=== PATIENT | female | born 1980 | race African-American/Black ===

== ENCOUNTER → 2020-01-06 13:17 | Outpatient (BNVA) | payer OTHER, SELFPAY | PROVIDERS: PCP Internal Medicine; Visit Provider Advanced Practice Midwife | DX: Z76.89 Persons encountering health services in other specified circumstances (principal) ==

== ENCOUNTER 2020-01-11 12:43 | Outpatient (REF) | payer OTHER, SELFPAY ==
[2020-01-11 13:58] LABS: MANUAL DIFF FLAG NO
[2020-01-11 14:00] LABS: Basophils Percent Auto 0.6 % (0-2); Eosinophils Percent Auto 0.4 % (0-4); Hematocrit 40.3 % (37-47); Hemoglobin 13.5 g/dl (12.0-16.0); Imm Gran Abs Auto 0.01 X10*3/uL (0.00-0.03); Imm Gran Pct Auto 0.2 % (0.0-0.4); Lymphocytes Absolute Auto 1.2 X10*3/uL (1.2-4.9); Lymphocytes Percent Auto 25.6 % (20-40); Mean Corpuscular HGB Conc 33.5 g/dl (31.0-35.0); Mean Corpuscular Hemoglobin 31.2 pg (27.0-33.0); Mean Corpuscular Volume 93.1 fL (80-98); Mean Platelet Volume 10.3 fL (9.4-12.3); Monocytes Absolute Auto 0.3 X10*3/uL (0.1-1.2); Monocytes Percent Auto 6.7 % (2-11); Neutrophils Absolute Auto 3.2 X10*3/uL (2.0-8.3); Neutrophils Percent Auto 66.5 % (45-73); Platelet Count 254 X10*3/uL (160-400); Red Blood Count 4.33 X10*6/uL (4.20-5.50); Red Cell Distribution Width 11.3 % (11.0-16.0); White Blood Count 4.8 X10*3/uL (4.8-10.8)
[2020-01-11 14:43] LABS: Alanine Aminotransferase 11 U/L (0-31); Albumin Level 4.3 g/dL (3.5-5.0); Alkaline Phosphatase 44 U/L (39-117); Anion Gap 13 (12-20); Aspartate Amino Transferase 15 U/L (5-31); Bilirubin Total 0.5 mg/dL (0.0-1.0); Blood Urea Nitrogen 15 mg/dL (9-16); Carbon Dioxide 25 mmol/L (22-29); Chloride 102 mmol/L (96-108); Estimated Glomerular Filt Rate > 60; Glucose Fasting 85 mg/dL (60-99); Potassium 4.1 mmol/l (3.3-5.1); Sodium 136 mmol/L (135-145); Total Protein 7.9 g/dL (6.5-8.0)
[2020-01-11 15:12] LABS: TSH reflex Free T4 0.45 mIU/mL (0.32-4.0)
[2020-01-11 15:13] LABS: Vitamin B12 461 pg/mL (200-900)
[2020-01-11 17:15] LABS: Cholesterol 145 mg/dL; HDL Cholesterol 48 mg/dL; LDL Cholesterol Calculated 90 mg/dl; Triglycerides 36 mg/dL
[2020-01-16 14:16] LABS: Vitamin D 25-OH, D2 <4 ng/mL; Vitamin D 25-OH, D3 20 ng/mL; Vitamin D 25-OH, Total 20 ng/mL (30-100)
== END 2020-01-11 12:44 | disposition home or self-care (01) ==
LOC: HO.LAB 12:43
PROVIDERS: PCP Internal Medicine; Visit Provider Internal Medicine
DX: E55.9 Vitamin D deficiency, unspecified (principal); Z83.3 Family history of diabetes mellitus
CPT/HCPCS: 36415; 80053; 80061; 82306; 82607; 84443; 85025

== ENCOUNTER 2020-06-15 11:16 | Outpatient (REF) | payer OTHER, SELFPAY ==
--- NOTE | ~2020-06-15 | XR_ITS ---
EXAMINATION: XR ELBOW, LEFT CLINICAL INFORMATION: Pain COMPARISON: None TECHNIQUE: AP, lateral, and oblique views of the left elbow. FINDINGS: The bones and soft tissues are normal. No fracture or joint effusion. Alignment is anatomic. Joint spaces are maintained. XR/XR elbow LT 2V IMPRESSION: Normal left elbow.
== END 2020-06-15 11:17 | disposition home or self-care (01) ==
LOC: HO.XRAY 11:16
PROVIDERS: PCP Internal Medicine; Visit Provider Internal Medicine
DX: M25.522 Pain in left elbow (principal)
CPT/HCPCS: 73070

== ENCOUNTER 2021-05-02 10:11 | Outpatient (REF) | payer OTHER, SELFPAY ==
[2021-05-02 11:30] LABS: MANUAL DIFF FLAG NO
[2021-05-02 11:52] LABS: Basophils Percent Auto 0.7 % (0-2); Eosinophils Percent Auto 0.2 % (0-4); Hematocrit 41.8 % (37.0-47.0); Hemoglobin 13.8 g/dl (12.0-16.0); Imm Gran Abs Auto 0.02 X10*3/uL (0.00-0.03); Imm Gran Pct Auto 0.5 % (0.0-0.4); Lymphocytes Absolute Auto 1.2 X10*3/uL (1.2-4.9); Lymphocytes Percent Auto 26.9 % (20-40); Mean Corpuscular Hemoglobin 30.1 pg (27.0-33.0); Mean Corpuscular Volume 91.1 fL (80.0-98.0); Mean Platelet Volume 9.6 fL (9.4-12.3); Monocytes Absolute Auto 0.4 X10*3/uL (0.1-1.2); Monocytes Percent Auto 8.8 % (2-11); Neutrophils Absolute Auto 2.7 x10*3/uL (2.0-8.3); Neutrophils Percent Auto 62.9 % (45-73); Platelet Count 232 X10*3/uL (160-400); Red Blood Count 4.59 X10*6/uL (4.20-5.50); Red Cell Distribution Width 11.9 % (11.0-16.0); White Blood Count 4.3 X10*3/uL (4.8-10.8)
[2021-05-02 12:24] LABS: Alanine Aminotransferase 17 U/L (0-31); Albumin Level 4.3 g/dL (3.5-5.0); Alkaline Phosphatase 53 U/L (39-117); Anion Gap 10 (12-20); Aspartate Amino Transferase 16 U/L (5-31); Bilirubin Total 0.5 mg/dL (0.0-1.0); Blood Urea Nitrogen 14 mg/dL (9-16); Calcium 9.4 mg/dL (8.4-10.2); Carbon Dioxide 26 mmol/L (22-29); Chloride 104 mmol/L (96-108); Cholesterol 148 mg/dL; Estimated Glomerular Filt Rate > 60; Glucose Fasting 91 mg/dL (60-99); HDL Cholesterol 51 mg/dL; LDL Cholesterol Calculated 90 mg/dl; Potassium 4.1 mmol/L (3.3-5.1); Sodium 136 mmol/L (135-145); Total Protein 7.9 g/dL (6.5-8.0); Triglycerides 35 mg/dL
[2021-05-02 12:42] LABS: Thyroid Stimulating Hormone 0.77 uIU/mL (0.32-4.0)
[2021-05-06 15:02] LABS: HPV mRNA E6/E7 rflx Not Detected (Not Detected)
[2021-05-07 15:46] LABS: Vitamin D 25-OH, D2 <4 ng/mL; Vitamin D 25-OH, D3 17 ng/mL; Vitamin D 25-OH, Total 17 ng/mL (30-100)
== END 2021-05-02 10:12 | disposition home or self-care (01) ==
LOC: HO.LAB 10:11
PROVIDERS: PCP Internal Medicine; Visit Provider Advanced Practice Midwife
DX: Z01.419 Encounter for gynecological examination (general) (routine) without abnormal findings (principal); Z11.51 Encounter for screening for human papillomavirus (HPV); E78.5 Hyperlipidemia, unspecified; R63.6 Underweight; E55.9 Vitamin D deficiency, unspecified; D64.9 Anemia, unspecified; Z83.3 Family history of diabetes mellitus
CPT/HCPCS: 36415; 80053; 80061; 82306; 84443; 85025; 87624; 88142

== ENCOUNTER → 2021-05-16 15:19 | Outpatient (BNVA) | payer OTHER, SELFPAY | PROVIDERS: PCP Internal Medicine; Visit Provider Advanced Practice Midwife ==

== ENCOUNTER 2021-06-14 11:35 | Outpatient (REF) | payer OTHER, SELFPAY ==
--- NOTE | ~2021-06-14 | US_ITS ---
EXAMINATION: US PELVIS CLINICAL INFORMATION: Abnormal uterine and vaginal bleeding. COMPARISON: None TECHNIQUE: Ultrasound of the pelvis is performed using transabdominal transducers along with Doppler. Transvaginal imaging was attempted. However, the patient is unable to accommodate the transducer, hence, it was not performed. FINDINGS: UTERUS: The uterus is anteverted, anteflexed and measures 8.3 x 3.8 x 4.8 cm The double wall endometrial thickness is 1.1 mm. The uterus is smooth in contour and has normal myometrial echogenicity. No visible fibroid. ADNEXA: Right ovary is not visualized. There is normal color flow to left adnexa. There is no ovarian torsion. There is no pelvic ascites or fluid collection. Right ovary is not visualized. Left ovary measures 2.1 x 1.5 x 1.8 cm and volume 3.0 mL. There is trace fluid posterior to the uterus. US/US pelvic complete IMPRESSION: Unremarkable uterus and left ovary. There is a small amount of free fluid posterior to the uterus.
== END 2021-06-14 11:36 | disposition home or self-care (01) ==
LOC: HO.US 11:35
PROVIDERS: Visit Provider Advanced Practice Midwife
DX: N93.9 Abnormal uterine and vaginal bleeding, unspecified (principal)
CPT/HCPCS: 76856

== ENCOUNTER 2021-09-07 13:11 | Outpatient (REF) | payer OTHER, SELFPAY ==
[2021-09-08 09:17] LABS: BV Int Neg Control Negative (Negative); BV Int Pos Control Positive (Positive)
[2021-09-08 09:34] LABS: CT PCR NOT DETECTED (Not Detect.); NG PCR NOT DETECTED (Not Detect.)
== END 2021-09-07 13:12 | disposition home or self-care (01) ==
LOC: HO.LAB 13:11
PROVIDERS: Visit Provider Advanced Practice Midwife
DX: Z32.02 Encounter for pregnancy test, result negative (principal); Z71.2 Person consulting for explanation of examination or test findings; N93.9 Abnormal uterine and vaginal bleeding, unspecified
CPT/HCPCS: 81025; 87480; 87491; 87510; 87591; 87660; 99212

== ENCOUNTER 2022-01-17 09:06 | Outpatient (REF) | payer OTHER, SELFPAY ==
--- NOTE | 2022-01-17 09:17 | ECG_ITS ---
Test Reason : Chest Pain unspecified Blood Pressure : / mmHG Vent. Rate : 082 BPM Atrial Rate : 082 BPM P-R Int : 162 ms QRS Dur : 082 ms QT Int : 362 ms P-R-T Axes : 079 082 049 degrees QTc Int : 422 ms Normal sinus rhythm Nonspecific ST abnormality Abnormal ECG When compared with ECG of 30-JAN-2012 14:42, No significant change was found Referred By: Sherry Benítez Electronically Signed By:OPHELIA ROBERSON MD
[2022-01-17 10:33] LABS: Alanine Aminotransferase 12 U/L (0-31); Albumin Level 4.3 g/dL (3.5-5.0); Alkaline Phosphatase 52 U/L (39-117); Anion Gap 14 (12-20); Aspartate Amino Transferase 13 U/L (5-31); Bilirubin Total 0.5 mg/dL (0.0-1.0); Blood Urea Nitrogen 16 mg/dL (9-16); Calcium 9.2 mg/dL (8.4-10.2); Carbon Dioxide 24 mmol/L (22-29); Chloride 103 mmol/L (96-108); Cholesterol 145 mg/dL; Estimated Glomerular Filt Rate > 60; Glucose Fasting 89 mg/dL (60-99); HDL Cholesterol 45 mg/dL; LDL Cholesterol Calculated 93 mg/dl; Potassium 3.8 mmol/L (3.3-5.1); Sodium 137 mmol/L (135-145); Total Protein 7.8 g/dL (6.5-8.0); Triglycerides 38 mg/dL
[2022-01-17 11:04] LABS: Vitamin D 25-OH Total 16.9 ng/mL (>30)
== END 2022-01-17 09:07 | disposition home or self-care (01) ==
LOC: HO.LAB 09:06
PROVIDERS: PCP Internal Medicine; Visit Provider Internal Medicine
DX: Z00.00 Encounter for general adult medical examination without abnormal findings (principal); R07.9 Chest pain, unspecified; E55.9 Vitamin D deficiency, unspecified
CPT/HCPCS: 36415; 80053; 80061; 82306; 93005

== ENCOUNTER → 2022-05-04 10:06 | Outpatient (BNVA) | payer OTHER, SELFPAY | PROVIDERS: PCP Internal Medicine; Visit Provider Advanced Practice Midwife | DX: Z13.89 Encounter for screening for other disorder (principal) ==

== ENCOUNTER → 2022-05-21 14:37 | Outpatient (BNVA) | payer OTHER, SELFPAY | PROVIDERS: PCP Internal Medicine; Referring Provider Internal Medicine; Visit Provider Internal Medicine | DX: R01.1 Cardiac murmur, unspecified (principal) | CPT/HCPCS: 99202 ==

== ENCOUNTER → 2022-05-28 12:59 | Outpatient (REF) | payer OTHER, SELFPAY ==
--- NOTE | 2022-05-28 13:02 | CA_ITS ---
Transthoracic Echocardiogram Patient (Last, First, Middle): Miracle Clifton, Gender: Female Date of : 1980 Age: 42 Procedure Date: 05/28/2022 Procedure Type: Transthoracic Echocardiogram Location: OP Height: 162.56 cm Weight: 48.08 kg BSA: 1.49 m2 Heart Rate: bpm BP: 110 / 72 mmHg Capsule Maker: TO Referring MD: Marvel Eden MD Symptoms: R07.9 - Chest pain, unspecified Study Quality: Fair ECG Rhythm: Sinus Conclusions: - The left ventricular systolic function is normal. The calculated ejection fraction is 57% by biplane method. - No obvious valvular pathology seen on this study. Findings Left Ventricle Normal left ventricular cavity size. There is normal left ventricular wall thickness. The left ventricular systolic function is normal. The calculated ejection fraction is 57% by biplane method. There is no evidence of regional wall motion abnormalities. Diastolic function is normal for age. Right Ventricle Normal right ventricular cavity size and systolic function. Atria Both atria are normal in size. Aortic Valve There is a normal trileaflet aortic valve. There is no aortic valve stenosis. There is no aortic valve regurgitation. Mitral Valve The mitral valve appears normal. There is no mitral valve regurgitation. There is no mitral valve stenosis. Pulmonic Valve The pulmonic valve is likely normal. Tricuspid Valve Normal tricuspid valve structure. There is trace tricuspid valve regurgitation. There is no evidence of pulmonary hypertension. Great Vessels The asc aorta is normal in size. Venous The inferior vena cava is normal in size and collapses greater than 50% with inspiration. Pericardium/Pleural There is no evidence of pericardial effusion. Prior Study Comparison No prior study available for comparison. Recommendations, Care & Conclusions No obvious valvular pathology seen on this study. Measurements 2D Linear Measurements IVSd: 0.73 0.6-0.9/0.6-1.0 cm LVIDd: 3.66 3.9-5.3/4.2-5.9 cm LVIDd Index: 2.46 2.4-3.2/2.2-3.1 cm/m2 LVIDs: 2.22 2.0-3.6 cm LVPWd: 0.61 0.7-1.1 cm LA Diam: 2.30 2.7-3.8/3.0-4.0 cm LAIDs Index: 1.54 1.5-2.3 cm/m2 LV Mass: 78.39 67-162/88-224 g LV Mass Index: 52.61 43-95/49-115 g/m2 LVOT Diam: 1.80 3.0+(-)1.3 cm 2D Systolic Function EF 4C: 56.30 >55% EF 2C: 61.50 >55% EF BiP: 56.80 >55% Mitral Valve MV Pk E: 0.70 MV PK A: 0.70 MV Decel Time: 230.00 E/A: 1.00 E'Lateral: 18.30 E'Medial: 16.20 E/E' Med: 4.30 E/E' Lat: 3.80 PHT: 67.00 MVA PHT: 3.28 Decel Meagher: 3.03 Aortic Valve AoV Pk Gonsalo: 1.25 AoV Mn Gonsaol: 0.83 AoV VTI: 0.22 AoV Pk Grad: 6.00 Aov Mn Grad: 3.00 RADHA Cont.VTI: 2.32 LVOT LVOT Pk Gonsalo: 1.02 LVOT Mn Gonsalo: 0.68 LVOT VTI: 0.20 LVOT Pk Grad: 4.00 LVOT Mn Grad: 2.00 LVOT Diam: 1.80 LVOT Area: 2.54 Diastolic Function MV Pk E: 0.70 MV Pk A: 0.70 E/A: 1.00 E'Medial: 16.20 E/E' Med: 4.30 E' Laterial: 18.30 E/E' Lat: 3.80 Right Ventricle TAPSE (mm): 22.60 TVS' Gonsalo: 12.40 Tricuspid Valve TR Pk Gonsalo: 1.91 TR Pk Grad: 15.00 RA Press: 3.00 RVSP: 18.00 Great Vessels Aorta Sinus of Valsalva: 3.03 2.0-3.[address] Ridge: 2.37 1.7-3.4 cm Ao Asc: 2.40 2.1-3.4 cm Updated in Other Vendor System with Status of Final Marvel Eden MD electronically signed on 05/28/2022 5:19:13 PM with status of Final
== END ==
LOC: HO.CARD 12:59
PROVIDERS: PCP Internal Medicine; Visit Provider Internal Medicine
DX: R07.9 Chest pain, unspecified (principal)
CPT/HCPCS: 93306

== ENCOUNTER 2022-06-01 14:06 | Outpatient (REF) | payer OTHER, SELFPAY ==
--- NOTE | ~2022-06-01 | MM_ITS ---
EXAMINATION: MM SCREENING DIGITAL BREAST TOMOSYNTHESIS, BILATERAL CLINICAL INFORMATION: Screening. Asymptomatic. Age 42. No prior mammography. Family history breast cancer maternal half-sister. The lifetime risk of breast cancer based on the Tyrer-Cuzick Model is 17%. COMPARISON: None (current study represents initial baseline exam). TECHNIQUE: Digital breast tomosynthesis is performed in both the craniocaudal and mediolateral oblique views along with computer-aided detection (CAD). Synthesized 2D images are generated from the tomosynthesis. FINDINGS: The breasts are extremely dense, which lowers the sensitivity of mammography (ACR BI-RADS breast composition Category d). There is a 0.7 cm nodular asymmetry upper right breast on MLO view 8 cm from nipple. As this represents initial baseline, patient will be recalled for additional imaging. The remainder of the breasts show no mass or architectural abnormality. The axilla and skin contours are unremarkable. Right breast has scattered punctate round calcifications without focal grouping. Left breast MLO view has some loosely grouped calcifications mid upper breast and mid central lower breast without grouping on CC view. As this represents initial baseline, additional left magnification views will be obtained at time of recall. MM/MM tomosynthesis screening BI IMPRESSION: Right: -Nodular asymmetry 0.7 cm upper quadrant on MLO view. Left: -Loosely grouped calcifications on MLO view upper abdomen central lower breast. ASSESSMENT: BI-RADS 0: Incomplete - Need Additional Imaging Evaluation RECOMMENDATION: 1. Additional views of the right breast (spot MLO). Targeted ultrasound if warranted after review of the additional views. 2. Additional views left breast (magnification ML upper and central lower, magnification CC inner and outer). 3. Radiology department staff will contact the patient for additional imaging. This patient's information was entered into a reminder system with a target due date for their next mammogram.
== END 2022-06-01 14:07 | disposition home or self-care (01) ==
LOC: HO.MAMMO 14:06
PROVIDERS: Visit Provider Advanced Practice Midwife
DX: Z12.31 Encounter for screening mammogram for malignant neoplasm of breast (principal)
CPT/HCPCS: 77063; 77067

== ENCOUNTER 2022-06-28 13:31 | Outpatient (REF) | payer OTHER, SELFPAY ==
--- NOTE | ~2022-06-28 | MM_ITS ---
EXAMINATION: MM DIAGNOSTIC DIGITAL BREAST TOMOSYNTHESIS, BILATERAL CLINICAL INFORMATION: Recall from baseline screening for nodular asymmetry upper right breast and loosely grouped calcifications left breast. TC score 17%. COMPARISON: Mammography: 06/02/2019 (baseline, BI-RADS 0). TECHNIQUE: Left breast: Digital magnification mammography in CC x2 and ML x2 views. Right breast: Digital breast tomosynthesis is performed in spot MLO view. 2-D images are generated from the tomosynthesis. FINDINGS: The breasts are extremely dense, which lowers the sensitivity of mammography (ACR BI-RADS breast composition Category d). Additional magnification views left breast show scattered loosely calcifications in the central inner quadrant. A few of the calcifications show layering on ML view. The recent baseline mammography also showed scattered random calcifications contralateral right breast. The left breast calcifications are probably benign and will be reassessed again in 6 months to include magnification views. Additional spot view upper right breast demonstrates no mass, focal parenchymal asymmetry, or architectural abnormality. Right breast may be reassessed again at time of next annual exam, due in 12 months. Results are discussed with the patient at time of visit. MM/MM tomosynthesis added view BI IMPRESSION: Left: -Regional loosely grouped calcifications central inner breast. Right: -No mammographic evidence of malignancy. ASSESSMENT: BI-RADS 3: Probably Benign RECOMMENDATION: Diagnostic left mammography in 6 months. This patient's information was entered into a reminder system with a target due date for their next mammogram.
== END 2022-06-28 13:32 | disposition home or self-care (01) ==
LOC: HO.MAMMO 13:31
PROVIDERS: PCP Internal Medicine; Visit Provider Advanced Practice Midwife
DX: R92.1 Mammographic calcification found on diagnostic imaging of breast (principal); N64.89 Other specified disorders of breast
CPT/HCPCS: 77062; 77066

== ENCOUNTER 2022-12-28 14:19 | Outpatient (REF) | payer OTHER, SELFPAY ==
--- NOTE | ~2022-12-28 | MM_ITS ---
EXAMINATION: MM DIAGNOSTIC DIGITAL BREAST TOMOSYNTHESIS, LEFT CLINICAL INFORMATION: 6 month follow-up left breast calcifications COMPARISON: Mammography: 06/28/2022, 06/01/2022. TECHNIQUE: Digital breast tomosynthesis is performed in the following views,; full-field left CC and MLO 3-D views; and 3-D spot magnification left CC and mediolateral views were performed. FINDINGS: The breasts are extremely dense, which lowers the sensitivity of mammography (ACR BI-RADS breast composition Category d). There are numerous scattered calcifications throughout the left breast, most numerous in the central anterior and posterior left breast as well as the slightly upper and slightly medial left breast. On the mediolateral projection, the majority of these layer, consistent with milk of calcium. This suggests that these calcifications although widespread are benign. Recommend 1 additional 6 month follow-up to include standard left magnification views, of which the left mediolateral view should be left in compression for 2-3 minutes to allow maximum layering. At that time, the patient will be due for bilateral screening exam. Otherwise, no suspicious masses, or developing areas of distortion identified in the left breast. A prominent round focus of parenchyma in the upper left breast is unchanged from 06/11/2022. MM/MM tomosynthesis diagnostic LT IMPRESSION: Probably benign calcifications left breast as detailed, most likely representing milk of calcium. Recommend six-month interval follow-up left diagnostic mammogram to include standard magnification views. Please see above. Otherwise, no suspicious findings in the left breast. ASSESSMENT: BI-RADS BI-RADS 3 - Probably benign finding(s) - 6 month follow-up suggested RECOMMENDATION: 6 Month F/U Results were provided to the patient at time of visit by the technologist. This patient's information was entered into a reminder system with a target due date for their next mammogram.
== END 2022-12-28 14:20 | disposition home or self-care (01) ==
LOC: HO.MAMMO 14:19
PROVIDERS: Visit Provider Advanced Practice Midwife
DX: R92.1 Mammographic calcification found on diagnostic imaging of breast (principal)
CPT/HCPCS: 77061; 77065

== ENCOUNTER → 2022-12-28 14:30 | Outpatient (BNV) | payer OTHER, SELFPAY | PROVIDERS: Visit Provider Radiology Diagnostic Radiology | DX: R92.1 Mammographic calcification found on diagnostic imaging of breast (principal) | CPT/HCPCS: 77061; 77065 ==

== ENCOUNTER 2023-01-28 08:25 | Outpatient (AMB) | payer OTHER, SELFPAY ==
[2023-01-28 08:28] VITALS: BP 120/72; PULSE 83; O2SAT 98; BMI 18.2
--- NOTE | 2023-01-28 08:28 | MHC.PC.OV ---
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: No Accompanied by: Self / Same As Patient Allergies penicillin V Allergy (Unknown, Verified 01/28/23 08:34) not sure Medication List - Last Reconciled 01/28/23 by Sherry Benítez MD cholecalciferol (vitamin D3) 50 mcg PO DAILY 90 days Tobacco use date assessed: 01/28/23 Dental Screening Dental Screen Date: 01/28/23 Did you have a dental visit in the last 12 months?: Yes Did you have a dental problem in the last 6 months where you did not have access to dental care?: No Was dental information given to patient?: Patient has dentist HPI HPI Comments History of Present Illness Details This is a 42-year-old female that comes for her physical exam. Last mammogram was last month showing benign findings but needs to be repeated in 6 months. Last Pap smear was 2021 which was normal with HPV negative. Denies any chest pain or shortness of breath. COUNT INCLUDES [facility] Medical History Family history of diabetes mellitus Underweight Abdominal pain Surgical History No history of previous surgery Family History Father Liver cancer Maternal Grandmother Diabetes mellitus Family/Other Breast cancer Mother No problems noted. Social History Household Members: Children Household Members Other:: . 10 yr old daughter, 6 yr old son Housing: Apartment Alcohol intake: never Patient Tobacco Use Status: Never used Tobacco e-Cigarette/Vaping Use: Never Used Second Hand Smoke Exposure: No service: No Current occupational status: unemployed Gender identity: Female Cognitive needs: No Hearing needs: No Vision needs: No Female Reproductive History Menstrual Age of Menarche: 14 Questionnaire PHQ-9 Over the last 2 weeks, how often have you been bothered by any of the following problems? 1. Little interest or pleasure in doing things: not at all 2. Feeling down, depressed, or hopeless: not at all 3. Trouble falling or staying asleep, or sleeping too much: not at all 4. Feeling tired or having little energy: not at all 5. Poor appetite or overeating: not at all 6. Feeling bad about yourself - or that you are a failure or have let yourself or your family down: not at all 7. Trouble concentrating on things, such as reading the newspaper or watching television: not at all 8. Moving or speaking so slowly that other people could have noticed. Or the opposite - being so fidgety or restless that you have been moving around a lot more than usual: not at all 9. Thoughts that you would be better off or of hurting yourself in some way: not at all Total score: 0 Depression Screening Interpretation: Negative Depression Screening Done: Yes 37914 - PHQ-9 Billing: Yes Source: Developed by Drs. Bony Rajput, Dana Morataya, Arturo Duggan and colleagues, with an educational ann from [email or web address]. Thrive Questionnaire Date Thrive assessed: 01/28/23 I am a: Patient What is your living situation today?: I have a steady place to live Within the past 12 months, did the food you bought not last and you didn't have the money to get more?: Never true Within the past 12 months, did you worry whether your food would run out before you got money to buy more?: Never true Do you have trouble paying for medicines?: No Do you have trouble getting transportation to medical appointments?: No Do you have trouble paying your heating and electricity bill?: No Do you have trouble taking care of your child, family member or friend?: No Do you have trouble with day-to-day activities such as bathing, preparing meals, shopping, managing finances, etc.?: No Are you currently unemployed and looking for a job?: No Are you interested in more education?: No Please select the resources that you would like help with: None Currently or been in a relationship where the following occur: no concerns reported AUDIT C Alcohol Use Questionnaire (AUDIT-C) 1. How often do you have a drink containing alcohol?: Never Total Score: 0 Score Reviewed/Action Taken: No CUAUHTEMOC-7 AMB Questionnaire CUAUHTEMOC-7 Date CUAUHTEMOC - 7 assessed: 01/28/23 Feeling nervous, anxious, or on edge: 0 = Not at all Not being able to stop or control worryin = Not at all Worrying too much about different things: 0 = Not at all Trouble relaxin = Not at all Being so restless that it is hard to sit still: 0 = Not at all Becoming easily annoyed or irritable: 0 = Not at all Feeling afraid as if something awful might happen: 0 = Not at all Total CUAUHTEMOC-7 score (0-4 normal; 5-9 mild; 10-14 moderate; 15-21 severe): 0 Source: Developed by Drs. Bony Rajput, Dana Morataya, Arturo Duggan and colleagues, with an educational ann from [email or web address]. CUAUHTEMOC-7 Assessment Billing CUAUHTEMOC-7 Assessment Tool: CUAUHTEMOC-7 Assessment 45242 Review of Systems Const All systems reviewed & are unremarkable except as noted in HPI and below Eyes Reports no additional complaints, Denies change in vision and Denies other visual disturbances Card Denies chest pain at rest, Denies chest pain with activity, Denies edema, Denies irregular heart rhythm, Denies claudication, Denies dyspnea, Denies dyspnea on exertion, Denies orthopnea, Denies paroxysmal nocturnal dyspnea and Denies slow heart rate Resp Denies cough, Denies dyspnea and Denies dyspnea on exertion GI Denies abdominal pain, Denies change in bowel habits, Denies excessive flatus, Denies nausea and Denies vomiting Denies urinary incontinence, Denies urinary hesitancy and Denies urinary urgency Musc Denies abnormal gait, Denies atrophy, Denies deformity and Denies limited range of motion Skin/Breast Denies bleeding lesions, Denies changing lesions and Denies rash Neuro Denies abnormal gait and Denies lack of coordination Physical exam (Primary Care) Vital Signs: Last Vital Signs Pulse 83 01/28/23 08:28 BP 120/72 01/28/23 08:28 Pulse Ox 98 01/28/23 08:28 Oxygen Delivery Method Room Air 01/28/23 08:28 BMI result Body Mass Index 18.2 Tobacco/Smoking Status: Tobacco use Status Tobacco use date assessed 01/28/23 01/28/23 08:31 Patient Tobacco Use Status Never used Tobacco 01/28/23 08:31 e-Cigarette/Vaping Use Never Used 01/28/23 08:31 PHQ-9: PHQ-9 Score PHQ-9: Total score 0 01/28/23 08:32 Depression Screening Interpretation: Negative Thrive Assessment: Date of Thrive Assessment Date Thrive assessed 01/28/23 01/28/23 08:31 Currently or been in a relationship where the following occur: no concerns reported Const Orientation/consciousness: patient oriented x3 HENMT Head: Yes normal to inspection, Yes normocephalic and Yes atraumatic Ears: external ears normal Eyes General: appearance normal, both eyes and all related structures Eyelids: Yes eyelids normal Conjunctivae: conjunctivae normal Neck Neck: Yes normal visual inspection and Yes supple Resp Effort & Inspection: normal respiratory effort Auscultation: clear to auscultation bilaterally Cardio Jugular venous distension: no JVD Rate: regular rate Rhythm: regular rhythm Heart sounds: S1 normal heart sound present and S2 normal heart sound present GI Inspection: Yes normal to inspection Palpation (GI): Soft to palpation and nontender Auscultation: normal bowel sounds Skin General skin exam: no rashes or lesions noted Neuro General: patient oriented x3 and no focal motor deficits Extrem General: Yes full ROM Psych Appearance: grossly normal Office Procedures Flu Questionnaire Does the patient have a severe egg allergy?: No Immunizations flu vacc [id number] 6mos up(PF) 60 mcg(15 mcgx4)/0.5 mL IM syringe Performing Provider: Sherry Benítez MD [facility] Documented (not given) by: JANKI Jin on 01/28/23 08:32 Reason Not Given: Patient Refused Assessment and Plan Assessment & Plan (1) Physical exam: Code(s): Z00.00 - Encounter for general adult medical examination without abnormal findings Plan: Repeat in a year. Orders: Orders Vitamin D 25-OH Total Today E55.9 - Vitamin D deficiency, unspecified Comprehensive [place]. Panel Fast Today Z00.00 - Encounter for general adult medical examination without abnormal findings Influenza [id number] Immunization Today Z23 - Encounter for immunization Lipid Panel Today Z00.00 - Encounter for general adult medical examination without abnormal findings Coding Level of Care Code Est Pt Prev Care 40-64y(75872) Diagnoses Physical exam Z00.00 Additional Codes CUAUHTEMOC-7 Assessment Billing - CUAUHTEMOC-7 Assessment Tool: CUAUHTEMOC-7 Assessment 14233 ([id number]) Time Spent (min) 30
== END 2023-01-28 08:41 | disposition home or self-care (01) ==
PROVIDERS: Visit Provider Internal Medicine
DX: Z00.00 Encounter for general adult medical examination without abnormal findings (principal); Z83.3 Family history of diabetes mellitus; E55.9 Vitamin D deficiency, unspecified
CPT/HCPCS: 99396

== ENCOUNTER 2023-01-28 08:46 | Outpatient (REF) | payer OTHER, SELFPAY ==
[2023-01-28 10:04] LABS: Alanine Aminotransferase 11 U/L (0-31); Albumin Level 4.1 g/dL (3.5-5.0); Alkaline Phosphatase 49 U/L (39-117); Anion Gap 10 (12-20); Aspartate Amino Transferase 15 U/L (5-31); Bilirubin Total 0.3 mg/dL (0.0-1.0); Blood Urea Nitrogen 14 mg/dL (9-16); Calcium 8.9 mg/dL (8.4-10.2); Carbon Dioxide 26 mmol/L (22-29); Chloride 105 mmol/L (96-108); Cholesterol 143 mg/dL (<200); Estimated Glomerular Filt Rate > 60; Glucose Fasting 89 mg/dL (60-99); HDL Cholesterol 42 mg/dL (>40); LDL Cholesterol Calculated 92 mg/dL (<100); Potassium 3.5 mmol/L (3.3-5.1); Sodium 137 mmol/L (135-145); Total Protein 7.8 g/dL (6.5-8.0); Triglycerides 49 mg/dL (<150)
[2023-01-28 10:07] LABS: Vitamin D 25-OH Total 19.1 ng/mL (>30)
== END 2023-01-28 08:47 | disposition home or self-care (01) ==
LOC: HO.LAB 08:46
PROVIDERS: PCP Internal Medicine; Visit Provider Internal Medicine
DX: Z00.00 Encounter for general adult medical examination without abnormal findings (principal); E55.9 Vitamin D deficiency, unspecified
CPT/HCPCS: 36415; 80053; 80061; 82306

== ENCOUNTER → 2023-07-11 15:00 | Outpatient (BNV) | payer OTHER, SELFPAY | PROVIDERS: PCP Internal Medicine; Visit Provider Radiology Diagnostic Radiology | DX: R92.1 Mammographic calcification found on diagnostic imaging of breast (principal); D24.1 Benign neoplasm of right breast; D24.2 Benign neoplasm of left breast | CPT/HCPCS: 77062; 77066 ==

== ENCOUNTER 2023-07-11 15:06 | Outpatient (REF) | payer OTHER, SELFPAY ==
--- NOTE | ~2023-07-11 | MM_ITS ---
EXAMINATION: MM DIAGNOSTIC DIGITAL BREAST TOMOSYNTHESIS, BILATERAL CLINICAL INFORMATION: 6 month follow-up for left breast calcifications. Second follow-up to establish one-year stability. Patient also due for bilateral screening. COMPARISON: Mammography: 12/28/2022, 06/28/2022, 06/01/2022 (BI-RADS 0). TECHNIQUE: Digital breast tomosynthesis is performed in both the craniocaudal and mediolateral oblique views along with computer-aided detection (CAD). Synthesized 2D images are generated from the tomosynthesis. In addition to standard views, 2-D spot magnification views of the left breast were performed in the CC and ML projections x2. FINDINGS: The breasts are extremely dense, which lowers the sensitivity of mammography (ACR BI-RADS breast composition Category d). Regional calcifications are noted in both breasts predominantly mid and upper quadrants, punctate, with clear layering of left breast calcifications on the ML spot magnification view. These findings are consistent with milk of calcium and are benign. No further follow-up of left breast calcifications is required. The right breast calcifications have similar mirror image distribution, and same morphology and are also consistent with the benign etiology. No aggressive changes noted since 06/01/2022. There are circumscribed round and oval masses in both breasts, difficult to perceive due to the extreme density of the surrounding breast tissue. These are most consistent with numerous cysts or fibroadenomas. These findings are benign and no additional follow-up is required. There are no suspicious masses, suspicious grouped calcifications, developing regions of architectural distortion, skin, or axillary abnormalities in either breast. The extremely dense parenchymal pattern is overall stable from prior exams. MM/MM tomosynthesis diagnostic BI IMPRESSION: -There are no significant changes from the prior studies. There are no findings in either breast suspicious for malignancy. -Left breast calcifications all appear to layer on the ML magnification view and are consistent with milk of calcium. These findings are benign and no further follow-up recommended. Regional calcifications in a mirror image configuration in the right breast are also consistent with same etiology and also benign. -Several round and oval circumscribed masses in both breasts are most consistent with numerous cysts, most likely secondary to fibrocystic extremely dense breast parenchyma. -A patient with this degree of breast density may benefit from yearly screening ultrasound as a screening adjunct as well as yearly screening mammography, usually performed in a six-month staggered fashion. -Otherwise, recommend this patient resume routine annual screening mammography. ASSESSMENT: BI-RADS BI-RADS 2 - Benign Findings RECOMMENDATION: 1 year F/U Results were provided to the patient at time of visit by the technologist. This patient's information was entered into a reminder system with a target due date for their next mammogram.
== END 2023-07-11 15:07 | disposition home or self-care (01) ==
LOC: HO.MAMMO 15:06
PROVIDERS: PCP Internal Medicine; Visit Provider Advanced Practice Midwife
DX: R92.1 Mammographic calcification found on diagnostic imaging of breast (principal)
CPT/HCPCS: 77062; 77066

== ENCOUNTER 2023-10-30 14:15 | Outpatient (AMB) | payer OTHER, SELFPAY ==
--- NOTE | 2023-10-30 14:17 | MHC.OFFVIS ---
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 Doing well with no concerns. She tries to eat healthy and stays active with exercise. Regular monthly menses. Currently is not sexually active. She denies vaginal itching and irritation. STI screening offered; she declines. Denies family history of ovarian or colon cancer. FH breast cancer. Last pap smear 2021, negative. Mammogram: 2023. History of calcifications and very dense breasts. [facility] Medical History (Updated 10/30/23 @ 14:53 by Eva Burnette CNM) Mammographic extreme density, bilateral breasts Family history of diabetes mellitus Underweight Abdominal pain Surgical History No history of previous surgery Family History Father Liver cancer Maternal Grandmother Diabetes mellitus Family/Other Breast cancer Mother No problems noted. Social History Household Members: Children Household Members Other:: . 10 yr old daughter, 6 yr old son Housing: Apartment Alcohol intake: never Patient Tobacco Use Status: Never used Tobacco e-Cigarette/Vaping Use: Never Used Second Hand Smoke Exposure: No service: No Current occupational status: unemployed Gender identity: Female Cognitive needs: No Hearing needs: No Vision needs: No Female Reproductive History Menstrual Age of Menarche: 14 Date of last menstrual period: 10/07/23 Total pregnancies: 3 Full term: 2 Number of Living Children: 2 Ab spontaneous: 1 Date of last pap smear: 05/02/21 (neg pap and hpv) Date of Mammogram: 07/11/23 (Birad 1) Review of Systems Const All systems reviewed & are unremarkable except as noted in HPI and below Reports as per HPI Eyes Reports no additional complaints ENT Reports no additional complaints Card Reports no additional complaints Resp Reports no additional complaints GI Reports as per HPI and Reports no additional complaints Reports as per HPI Musc Reports no additional complaints Skin/Breast Reports as per HPI Neuro Reports no additional complaints Psych Reports no additional complaints Endo Reports no additional complaints Khoa/Lymph Reports no additional complaints Aller/Immun Reports no additional complaints Physical Exam Vital Signs: Last Vital Signs BP 110/74 10/30/23 14:18 BMI result Body Mass Index 18.7 Const General: cooperative, healthy appearing, no acute distress, well developed and alert Orientation/consciousness: patient oriented x3 HEENT Head: Yes normal to inspection Eyes General: appearance normal, both eyes and all related structures Neck Neck: Yes normal visual inspection Thyroid: Thyroid normal Chest Chest palpation & inspection: normal inspection of the chest and other (no puckering, dimpling, peau de orange, retraction, discharge, masses) Breast/axilla inspection: normal inspection of the breasts Breast/axilla palpation: normal palpation of the breasts Resp Effort & Inspection: normal respiratory effort GI Inspection: Yes normal to inspection Palpation (GI): Soft to palpation Rectal Exam - Female: deferred General: Yes bladder normal to palpation External Female Exam: normal external appearance and normal appearance of the urethra Speculum Exam - Vagina: normal appearance of the vagina, normal palpation and normal vaginal discharge Speculum Exam - Cervix: normal appearance of the cervix and normal palpation Bimanual exam- vagina & uterus: normal bimanual exam, normal palpation, uterine size normal, bladder normal to palpation, normal palpation and non-tender Bimanual Exam- Adnexa, other: no masses Skin General skin exam: no rashes or lesions noted Rashes: no rashes Neuro General: patient oriented x3 Cognition (Neuro): normal cognition Extrem General: Yes normal to inspection Psych Attitude: cooperative Thought process: Normal thought process present Assessment & Plan Assessment & Plan (1) Encounter for well woman exam with routine gynecological exam: Code(s): Z01.419 - Encounter for gynecological examination (general) (routine) without abnormal findings Category: Medical Plan: Discussed: Current recommendations for pap smears per ASCCP guidelines. Breast awareness and periodic breast exams. Breast density concerns for limitations with screening, consider further screening with MRI and referral to breast surgery for consult. Maintain a healthy lifestyle including a well balanced diet and routine exercise. Use condoms for STI and prevention. Mammogram yearly. Colonoscopy >45, or at risk sooner. Patient verbalizes understanding and agrees to the plan of care. She was given opportunity to ask questions and all questions were answered to the best of my ability. RTO in one year for annual obstetrician/gynecologist examination. This note is constructed using voice recognition software. While every effort has been made to ensure accuracy, exhibits curator errors may have been included. Orders: Referrals Breast Surgery Referral R92.343 - Mammographic extreme density, bilateral breasts Coding Level of Care Code Est Pt Prev Care 40-64y(75364) Diagnoses Encounter for well woman exam with routine gynecological exam Z01.419
[2023-10-30 14:18] VITALS: BP 110/74; BMI 18.7
== END 2023-10-30 14:55 | disposition home or self-care (01) ==
PROVIDERS: PCP Internal Medicine; Visit Provider Advanced Practice Midwife
DX: Z01.419 Encounter for gynecological examination (general) (routine) without abnormal findings (principal)
CPT/HCPCS: 99396

== ENCOUNTER → 2023-10-30 14:15 | Outpatient (BNVA) | payer OTHER, SELFPAY | PROVIDERS: PCP Internal Medicine; Visit Provider Advanced Practice Midwife | DX: Z01.419 Encounter for gynecological examination (general) (routine) without abnormal findings (principal); R92.343 Mammographic extreme density, bilateral breasts | CPT/HCPCS: 99396 ==

== ENCOUNTER 2023-12-19 15:38 | Outpatient (AMB) | payer OTHER, SELFPAY ==
--- NOTE | 2023-12-19 15:48 | MHC.OFFVIS ---
Intake Visit Reasons: Mammographic extreme density, bilateral breasts Intake Note: Patient is seen in office density of bilateral breasts. 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 Her most recent mammogram dated 07/11/2023 revealed stable calcifications with no mammographic evidence of malignancy (BI-RADS 2). Her breast density score was D. She denies any current breast symptoms including pain, redness, discharge, palpable mass or enlarged lymph nodes. Her family history is negative for breast cancer. She is reports breast-feeding 2nd child for 5 years. She denies a history of breast trauma or infections. She denies a history of breast surgeries. [facility] Medical History Mammographic extreme density, bilateral breasts Family history of diabetes mellitus Underweight Abdominal pain Surgical History No history of previous surgery Family History Father Liver cancer Maternal Grandmother Diabetes mellitus Family/Other Breast cancer Mother No problems noted. Social History Household Members: Children Household Members Other:: . 10 yr old daughter, 6 yr old son Housing: Apartment Alcohol intake: never Patient Tobacco Use Status: Never used Tobacco e-Cigarette/Vaping Use: Never Used Second Hand Smoke Exposure: No service: No Current occupational status: unemployed Gender identity: Female Cognitive needs: No Hearing needs: No Vision needs: No Female Reproductive History Menstrual Age of Menarche: 14 Date of last menstrual period: 12/19/23 Total pregnancies: 3 Number of Living Children: 2 Ab spontaneous: 1 Review of Systems Const All systems reviewed & are unremarkable except as noted in HPI and below Denies chills, Denies fever(s), Denies headache(s), Denies poor appetite and Denies weakness ENT Denies headache(s) Card Denies chest pain, Denies irregular heart rhythm, Denies palpitations and Denies dyspnea Resp Denies cough, Denies excessive phlegm production and Denies dyspnea GI Denies abdominal pain, Denies bloating, Denies change in bowel habits, Denies constipation, Denies heartburn, Denies diarrhea, Denies nausea and Denies vomiting Denies urinary frequency Musc Denies back pain, Denies muscle weakness and Denies numbness Skin/Breast Denies changing lesions and Denies unusual bruising Neuro Denies headache(s), Denies numbness, Denies paresthesias and Denies weakness Psych Denies anxiety and Denies depression Endo Denies palpitations Khoa/Lymph Denies lymphadenopathy Physical Exam Const General: cooperative and no acute distress Nutritional Appearance: well nourished Orientation/consciousness: patient oriented x3 Limitations: no limitations HEENT Head: Yes normocephalic and Yes atraumatic Ears: hearing grossly normal bilaterally Chest Other: Bilateral fibrocystic change especially in the upper outer quadrant Left breast: No skin change, no nipple retraction, no nipple discharge, no palpable mass, no enlarged lymph nodes. Right breast: No skin change, no nipple retraction, no nipple discharge, no palpable mass, no enlarged lymph nodes Resp Effort & Inspection: normal respiratory effort, no audible wheezes, no cough and no respiratory distress Cardio Jugular venous distension: no JVD GI Inspection: Yes normal to inspection Skin Other: Warm, dry, no rash Neuro General: patient oriented x3 Extrem General: Yes no clubbing, cyanosis or edema Assessment & Plan Assessment & Plan (1) Mammographic extreme density, bilateral breasts: Code(s): R92.343 - Mammographic extreme density, bilateral breasts Category: Medical Plan 43-year-old female patient found on mammogram to have benign-appearing calcifications but extremely dense breasts (category D). Examination today does revealed dense breast tissue with bilateral fibrocystic change. I recommended bilateral screening ultrasounds as an adjunct to the mammogram which could be performed yearly, alternating every 6 months with a mammogram. The patient expressed understanding and agrees with the plan. She will follow-up in 6 months for follow-up breast examination as well. I will inform her of the results of the ultrasound once available. Orders: Orders US breast LT complete Today R92.343 - Mammographic extreme density, bilateral breasts US breast RT complete Today R92.343 - Mammographic extreme density, bilateral breasts Coding Level of Care Code New Pt Level 4 (18991) Diagnoses Mammographic extreme density, bilateral breasts R92.343
== END 2023-12-19 16:14 | disposition home or self-care (01) ==
PROVIDERS: PCP Internal Medicine; Visit Provider Surgery
DX: R92.343 Mammographic extreme density, bilateral breasts (principal)
CPT/HCPCS: 99204

== ENCOUNTER → 2023-12-19 15:38 | Outpatient (BNVA) | payer OTHER, SELFPAY | PROVIDERS: PCP Internal Medicine; Visit Provider Surgery | DX: R92.343 Mammographic extreme density, bilateral breasts (principal) | CPT/HCPCS: 99202 ==

== ENCOUNTER 2024-01-08 11:48 | Outpatient (REF) | payer OTHER, SELFPAY ==
--- NOTE | ~2024-01-08 | US_ITS ---
EXAMINATION: US SCREENING ULTRASOUND BREAST, BILATERAL CLINICAL INFORMATION: Dense breasts on mammography. Screening ultrasound. COMPARISON: Mammography July 11, 2023. TECHNIQUE: Ultrasound is performed using grayscale imaging and color Doppler. Imaging is performed to include the four quadrants and retroareolar region. Both breasts are imaged. FINDINGS: Right breast: Targeted color Doppler ultrasound and 9:00 4 cm from the nipple to the shouldn't incidental simple cyst measuring 6 x 3 mm. There is a man additional incidental subcentimeter simple cyst at 9:00. Otherwise scanning in the upper outer quadrant upper inner quadrant lower outer quadrant lower inner quadrant axilla demonstrates normal fibroglandular breast tissue. There is no suspicious finding by ultrasound. There is no solid mass or focal architectural abnormality. Left breast: Targeted color Doppler ultrasound at 1:00 3 cm from the nipple nipple demonstrates is a hypoechoic oval circumscribed solid mass measuring 19 x 24 x 10 mm. Otherwise scanning in the axilla upper outer quadrant lower outer quadrant upper inner quadrant lower inner quadrant demonstrates normal fibroglandular breast tissue. Targeted color Doppler ultrasound at 9:00 4 cm from nipple demonstrates an oval hypoechoic area of probably minimally complicated cysts with intervening fibroglandular breast tissue measuring 9 x 7 x 4 mm. There is no suspicious finding by ultrasound. There is no solid mass or focal architectural abnormality. US/US breast BI complete IMPRESSION: 1. Hypoechoic oval solid mass measuring up to 24 mm in the left breast on ultrasound. Recommend 6 month follow-up ultrasound for further evaluation of stability. This mass is amenable to core needle biopsy if clinically indicated or if the patient prefers biopsy at this time. 2. Probable area of adjacent minimally complicated cysts with intervening breast tissue at 9:00 4 cm from the nipple. Recommend 6 month follow-up ultrasound for further evaluation of stability. ASSESSMENT: BI-RADS 3 - Probably benign finding(s) - 6 month follow-up suggested RECOMMENDATION: 6 Month F/U This patient's information was entered into a reminder system with a target due date for their next mammogram. Electronically signed by: Raina Morales DO 01/08/2024 02:10 PM EDT
== END 2024-01-08 11:49 | disposition home or self-care (01) ==
LOC: HO.MAMMO 11:48
PROVIDERS: Visit Provider Surgery
DX: R92.343 Mammographic extreme density, bilateral breasts (principal)
CPT/HCPCS: 76641

== ENCOUNTER → 2024-01-08 11:50 | Outpatient (BNV) | payer OTHER, SELFPAY | PROVIDERS: Visit Provider Internal Medicine | DX: N63.21 Unspecified lump in the left breast, upper outer quadrant (principal); R92.322 Mammographic fibroglandular density, left breast | CPT/HCPCS: 76641 ==

== ENCOUNTER 2024-02-03 08:39 | Outpatient (AMB) | payer OTHER, SELFPAY ==
--- NOTE | 2024-02-03 08:41 | A.OFFPC_ITS ---
Vital Signs 02/03/24 08:43 Height 5 ft 4 in Weight 109 lb BMI 18.7 BP 102/70 Blood Pressure Location Lt brachial Position Sitting Pulse 69 Pulse Source Pulse Oximeter Pulse Oximetry (%) 98 Oxygen Delivery Method Room Air Intake Visit Reasons: Annual PE Intake Note: Patient here for an annual physical exam Oral Pathologist Required: No Accompanied by: Self / Same As Patient Allergies penicillin V Allergy (Unknown, Verified 02/03/24 08:55) not sure Medication List - Last Reconciled 02/03/24 by Sherry Benítez MD No Known Home Meds Tobacco use date assessed: 02/03/24 Dental Screening Dental Screen Date: 02/03/24 Did you have a dental visit in the last 12 months?: No Did you have a dental problem in the last 6 months where you did not have access to dental care?: No Was dental information given to patient?: Patient has dentist HPI HPI Comments History of Present Illness Details The patient is a 43-year-old female presenting for a wellness and preventative care visit with a focus on vaccination status, specifically tetanus vaccination. The patient has a known allergy to penicillin and reports no current medication usage. Her familial history is significant for hepatic cirrhosis in her father, who passed after a liver transplant due to complications from a dormant Hepatitis B infection found in the donor liver. Her mother is alive and has type 2 diabetes, which is managed through diet without medications. The patient reports no personal history of depression, anxiety, or significant health conditions, and she denies a history of colon or breast cancer. She underwent a mammogram and ultrasound earlier this year, both with normal results, and a Pap smear in 2021 which showed normal findings. The patient reports not having received the flu vaccine this year and has not had a tetanus shot in over 10 years, expressing willingness to receive the tetanus vaccine during the visit. [facility] Medical History Mammographic extreme density, bilateral breasts Family history of diabetes mellitus Underweight Abdominal pain Surgical History No history of previous surgery Family History (Updated 02/03/24 @ 08:59 by Sherry Benítez MD) Father Liver cancer Cirrhosis Maternal Grandmother Diabetes mellitus Family/Other Breast cancer Mother Diabetes mellitus Social History Household Members: Children Household Members Other:: . 10 yr old daughter, 6 yr old son Housing: Apartment Alcohol intake: never Patient Tobacco Use Status: Never used Tobacco e-Cigarette/Vaping Use: Never Used Second Hand Smoke Exposure: No service: No Current occupational status: unemployed Gender identity: Female Cognitive needs: No Hearing needs: No Vision needs: No Female Reproductive History Menstrual Age of Menarche: 14 Questionnaire PHQ-9 Over the last 2 weeks, how often have you been bothered by any of the following problems? 1. Little interest or pleasure in doing things: not at all 2. Feeling down, depressed, or hopeless: not at all 3. Trouble falling or staying asleep, or sleeping too much: not at all 4. Feeling tired or having little energy: not at all 5. Poor appetite or overeating: not at all 6. Feeling bad about yourself - or that you are a failure or have let yourself or your family down: not at all 7. Trouble concentrating on things, such as reading the newspaper or watching television: not at all 8. Moving or speaking so slowly that other people could have noticed. Or the opposite - being so fidgety or restless that you have been moving around a lot more than usual: not at all 9. Thoughts that you would be better off or of hurting yourself in some way: not at all Total score: 0 Depression Screening Interpretation: Negative Depression Screening Done: Yes 47813 - PHQ-9 Billing: Yes Source: Developed by Drs. Bony Rajput, Dana Morataya, Arturo Duggan and colleagues, with an educational ann from [employer]. Thrive Questionnaire Date Thrive assessed: 01/27/24 I am a: Patient What is your living situation today?: I have a steady place to live Within the past 12 months, did the food you bought not last and you didn't have the money to get more?: Sometimes True Within the past 12 months, did you worry whether your food would run out before you got money to buy more?: Sometimes True Do you have trouble paying for medicines?: No Do you have trouble getting transportation to medical appointments?: No Do you have trouble paying your heating and electricity bill?: Yes Do you have trouble taking care of your child, family member or friend?: No Do you have trouble with day-to-day activities such as bathing, preparing meals, shopping, managing finances, etc.?: No Are you currently unemployed and looking for a job?: Yes Are you interested in more education?: Yes Please select the resources that you would like help with: None Currently or been in a relationship where the following occur: No concerns reported THRIVE Score: 3 AUDIT C Alcohol Use Questionnaire (AUDIT-C) 1. How often do you have a drink containing alcohol?: Never Total Score: 0 Score Reviewed/Action Taken: No CUAUHTEMOC-7 AMB Questionnaire CUAUHTEMOC-7 Date CUAUHTEMOC - 7 assessed: 02/03/24 Feeling nervous, anxious, or on edge: 0 = Not at all Not being able to stop or control worryin = Several days Worrying too much about different things: 0 = Not at all Trouble relaxin = Not at all Being so restless that it is hard to sit still: 0 = Not at all Becoming easily annoyed or irritable: 2 = More than half the days Feeling afraid as if something awful might happen: 1 = Several days Total CUAUHTEMOC-7 score (0-4 normal; 5-9 mild; 10-14 moderate; 15-21 severe): 4 Source: Developed by Drs. Bony Rajput, Dana Morataya, Arturo Duggan and colleagues, with an educational ann from [employer]. CUAUHTEMOC-7 Assessment Billing CUAUHTEMOC-7 Assessment Tool: CUAUHTEMOC-7 Assessment 13368 Review of Systems Const All systems reviewed & are unremarkable except as noted in HPI and below Card Denies chest pain at rest, Denies chest pain with activity, Denies edema, Denies irregular heart rhythm, Denies claudication, Denies dyspnea, Denies dyspnea on exertion, Denies orthopnea, Denies paroxysmal nocturnal dyspnea and Denies slow heart rate Resp Denies cough, Denies dyspnea and Denies dyspnea on exertion GI Denies abdominal pain, Denies change in bowel habits, Denies excessive flatus, Denies nausea and Denies vomiting Denies urinary incontinence, Denies urinary hesitancy and Denies urinary urgency Neuro Denies behavioral changes and Denies lack of coordination Psych Denies behavioral changes Physical exam (Primary Care) Vital Signs: Last Vital Signs Pulse 69 02/03/24 08:43 BP 102/70 02/03/24 08:43 Pulse Ox 98 02/03/24 08:43 Oxygen Delivery Method Room Air 02/03/24 08:43 BMI result Body Mass Index 18.7 Tobacco/Smoking Status: Tobacco use Status Tobacco use date assessed 02/03/24 02/03/24 08:44 Patient Tobacco Use Status Never used Tobacco 02/03/24 08:44 e-Cigarette/Vaping Use Never Used 02/03/24 08:44 PHQ-9: PHQ-9 Score PHQ-9: Total score 0 02/03/24 08:57 Depression Screening Interpretation: Negative Thrive Assessment: Date of Thrive Assessment Date Thrive assessed 01/27/24 02/03/24 08:44 Currently or been in a relationship where the following occur: No concerns reported HENMT Head: Yes normal to inspection, Yes normocephalic and Yes atraumatic Ears: external ears normal Eyes General: appearance normal, both eyes and all related structures Eyelids: Yes eyelids normal Conjunctivae: conjunctivae normal Neck Neck: Yes normal visual inspection and Yes supple Resp Effort & Inspection: normal respiratory effort Auscultation: clear to auscultation bilaterally Cardio Jugular venous distension: no JVD Rate: regular rate Rhythm: regular rhythm Heart sounds: S1 normal heart sound present and S2 normal heart sound present GI Inspection: Yes normal to inspection Palpation (GI): Soft to palpation and nontender Auscultation: normal bowel sounds Skin General skin exam: no rashes or lesions noted Neuro General: no focal motor deficits Extrem General: Yes full ROM Psych Appearance: grossly normal Office Procedures Flu Questionnaire Does the patient have a severe egg allergy?: No Immunizations Fluarix Triv [id number] (PF) 45 mcg (15 mcg x 3)/0.5 mL IM syringe Performing Provider: Sherry Benítez MD Performing Location: [facility] Documented (not given) by: JANKI Jin on 02/03/24 08:48 Reason Not Given: Patient Refused Boostrix Tdap 2.5 Lf unit-8 mcg-5 Lf/0.5 mL intramuscular syringe Performing Provider: Sherry Benítez MD Performing Location: [facility] Administered by: JANKI Jin on 02/03/24 09:07 Dose Route Admin Location Dispensed Lot Number Expiration Date NDC Guest Services Attendant 0.5 mL IM Left Deltoid 0.5 mL [id number] 01/31/26 21853-532-45 [employer] VIS Given Date VIS Provided VIS Publication Date 02/03/24 Single Vaccine 20 Eligibility Eligibility Date Funding Source Not [facility] Eligible 02/03/24 Private Coding Level of Care Code Est Pt Prev Care 40-64y(08673) Diagnoses Physical exam Z00.00 Additional Codes PHQ-9 - 96479 - PHQ-9 Billing: Yes ([id number]) CUAUHTEMOC-7 Assessment Billing - CUAUHTEMOC-7 Assessment Tool: CUAUHTEMOC-7 Assessment 17611 ([id number]) Time Spent (min) 30 Assessment & Plan Assessment & Plan (1) Physical exam: Code(s): Z00.00 - Encounter for general adult medical examination without abnormal findings Category: Medical Plan: Repeat in a year. Orders: Orders Vitamin D 25-OH Total Today E55.9 - Vitamin D deficiency, unspecified Influenza [id number] Immunization Today Z23 - Encounter for immunization TDaP Immunization Today Z23 - Encounter for immunization Lipid Panel Today Z00.00 - Encounter for general adult medical examination without abnormal findings Comprehensive [place]. Panel Fast Today Z00.00 - Encounter for general adult medical examination without abnormal findings Medications: New Boostrix Tdap (diphth,pertus(acell),tetanus) 0.5 mL IM ONCE 0.5 mL 0RF NS Z23 - Encounter for immunization
[2024-02-03 08:43] VITALS: BP 102/70; PULSE 69; O2SAT 98; BMI 18.7
== END 2024-02-03 09:09 | disposition home or self-care (01) ==
PROVIDERS: PCP Internal Medicine; Visit Provider Internal Medicine
DX: Z23 Encounter for immunization (principal); Z00.00 Encounter for general adult medical examination without abnormal findings

== ENCOUNTER 2024-02-03 08:39 | Outpatient (REF) | payer OTHER, SELFPAY ==
[2024-02-03 11:12] LABS: Alanine Aminotransferase 13 U/L (0-31); Alkaline Phosphatase 53 U/L (39-117); Anion Gap 10 (12-20); Aspartate Amino Transferase 18 U/L (5-31); Bilirubin Total 0.4 mg/dL (0.0-1.0); Blood Urea Nitrogen 13 mg/dL (9-16); Calcium 8.6 mg/dL (8.4-10.2); Carbon Dioxide 26 mmol/L (22-29); Chloride 106 mmol/L (96-108); Cholesterol 144 mg/dL (<200); Estimated Glomerular Filt Rate > 60; Glucose Fasting 90 mg/dL (60-99); HDL Cholesterol 43 mg/dL (>40); LDL Cholesterol Calculated 93 mg/dL (<100); Potassium 3.6 mmol/L (3.3-5.1); Sodium 138 mmol/L (135-145); Total Protein 7.4 g/dL (6.5-8.0); Triglycerides 41 mg/dL (<150)
[2024-02-03 11:13] LABS: Vitamin D 25-OH Total 19.3 ng/mL (>30)
== END 2024-02-03 08:40 | disposition home or self-care (01) ==
LOC: HO.LAB 08:39
PROVIDERS: PCP Internal Medicine; Visit Provider Internal Medicine
DX: Z00.00 Encounter for general adult medical examination without abnormal findings (principal); E55.9 Vitamin D deficiency, unspecified
CPT/HCPCS: 36415; 80053; 80061; 82306; 90471; 90715; 96127; 99396

== ENCOUNTER 2024-07-09 10:54 | Outpatient (REF) | payer OTHER, SELFPAY ==
--- NOTE | ~2024-07-09 | MM_ITS ---
EXAMINATION: MM DIAGNOSTIC DIGITAL BREAST TOMOSYNTHESIS, BILATERAL Left Limited ultrasound. CLINICAL INFORMATION: 6 month follow-up for left breast masses at 1:00 and 9:00. COMPARISON: Mammography: Comparison is made with relevant prior exams. TECHNIQUE: Digital breast mammography with tomosynthesis is performed in both the craniocaudal and mediolateral oblique views along with computer-aided detection (CAD). FINDINGS: The breasts are extremely dense, which lowers the sensitivity of mammography (ACR BI-RADS breast composition Category d). Bilateral circumscribed oval masses which wax and wane consistent with benign fibrocystic changes. There are no significant masses, abnormal calcifications, or other abnormalities. Targeted color Doppler ultrasound in the left breast at 9:00 4 cm from the nipple again demonstrates an area of probable adjacent minimally complicated cysts with intervening breast tissue measuring 7 x 6 x 9 mm. This is not significantly changed from prior ultrasound 6 months ago. Targeted color Doppler ultrasound 1:00 3 cm from nipple demonstrates a hypoechoic oval circumscribed solid mass measuring 20 x 23 x 11 mm not significantly changed from prior ultrasound. Results are provided to the patient at time of visit by the technologist. MM/MM tomosynthesis diagnostic BI IMPRESSION: Solid mass at 1:00 3 cm from the nipple measuring up to 23 mm. Ultrasound-guided core needle biopsy was offered to the patient. The patient declined prefers six-month follow-up for further evaluation of stability. Adjacent minimally complicated cyst at 9:00 4 cm from the nipple versus solid mass. Recommend 6 month follow-up for further evaluation of stability. ASSESSMENT: BI-RADS BI-RADS 3 - Probably benign finding(s) - 6 month follow-up suggested RECOMMENDATION: 6 Month F/U This patient's information was entered into a reminder system with a target due date for their next mammogram. Electronically signed by: Raina Morales DO 07/09/2024 01:03 PM EDT
== END 2024-07-09 10:55 | disposition home or self-care (01) ==
LOC: HO.MAMMO 10:54
PROVIDERS: PCP Internal Medicine; Visit Provider Internal Medicine
DX: R92.2 Inconclusive mammogram (principal)
CPT/HCPCS: 76642; 77062; 77066

== ENCOUNTER → 2024-07-09 11:00 | Outpatient (BNV) | payer OTHER, SELFPAY | PROVIDERS: PCP Internal Medicine; Visit Provider Internal Medicine | DX: N63.25 Unspecified lump in the left breast, overlapping quadrants (principal); N63.21 Unspecified lump in the left breast, upper outer quadrant; R92.343 Mammographic extreme density, bilateral breasts | CPT/HCPCS: 76642; 77062; 77066 ==

== ENCOUNTER 2025-01-11 09:14 | Outpatient (REF) | payer OTHER, SELFPAY ==
--- NOTE | ~2025-01-11 | US_ITS ---
EXAMINATION: US DIAGNOSTIC ULTRASOUND BREAST, LEFT CLINICAL INFORMATION: Patient is status post bilateral screening ultrasound on January 08, 2024. COMPARISON: Bilateral ultrasound on January 08, 2024 and left ultrasound on July 09, 2024 FINDINGS: Targeted ultrasound of the left breast was performed at the location of the previously described sonographic findings. -2.2 x 0.9 x 2.1 cm solid mass at 1 o'clock position 3 cm from the nipple. No internal vascularity demonstrated with color Doppler evaluation. Prior measurements of 2.4 x 1.9 x 1.0 cm in December 2023 and 2.3 x 1.1 x 2.0 cm in June 2024. -0.4 x 0.4 x 0.3 cm simple cyst at 9 o'clock position 4 cm from the nipple. No dedicated imaging follow-up needed. -1.0 x 0.4 x 0.7 cm previously described complicated cyst with intervening breast tissue at 9 o'clock position 5 cm from the nipple. Prior measurements of 0.9 x 0.7 x 0.4 cm in December 2023 and 0.9 x 0.7 x 0.6 cm in June 2024. Results are provided to the patient at time of visit by the technologist. US/US Breast LT Limited Mamm Only IMPRESSION: 1. Solid mass at 1 o'clock position 3 cm from the nipple measuring 2.2 cm, not significantly changed from December 2023. Probably benign. 2. Complicated cyst or solid mass at 9 o'clock position 5 cm from the nipple measuring 1.0 cm, not significantly changed from December 2023. Probably benign. Recommendation: 6-month follow-up is recommended as bilateral diagnostic mammogram and left breast ultrasound. ASSESSMENT: Category 3: Probably benign RECOMMENDATION: 6 Month F/U This patient's information was entered into a reminder system with a target due date for their next mammogram. Electronically signed by: Rafy Frias MD 01/11/2025 11:13 AM EDT
== END 2025-01-11 09:15 | disposition home or self-care (01) ==
LOC: HO.MAMMO 09:14
PROVIDERS: PCP Internal Medicine; Visit Provider Internal Medicine
DX: N60.02 Solitary cyst of left breast (principal)
CPT/HCPCS: 76642

== ENCOUNTER → 2025-01-11 09:30 | Outpatient (BNV) | payer OTHER, SELFPAY | PROVIDERS: PCP Internal Medicine; Visit Provider Radiology Body Imaging | DX: N63.21 Unspecified lump in the left breast, upper outer quadrant (principal); N63.25 Unspecified lump in the left breast, overlapping quadrants | CPT/HCPCS: 76642 ==

== ENCOUNTER 2025-02-03 08:49 | Outpatient (REF) | payer OTHER, SELFPAY ==
[2025-02-03 11:46] LABS: Alanine Aminotransferase 11 U/L (0-31); Albumin Level 4.3 g/dL (3.5-5.0); Alkaline Phosphatase 58 U/L (39-117); Anion Gap 11 (12-20); Aspartate Amino Transferase 20 U/L (5-31); Blood Urea Nitrogen 15 mg/dL (9-16); Calcium 8.8 mg/dL (8.4-10.2); Carbon Dioxide 22 mmol/L (22-29); Chloride 107 mmol/L (96-108); Cholesterol 147 mg/dL (<200); Estimated Glomerular Filt Rate > 60; HDL Cholesterol 43 mg/dL (>40); Potassium 3.6 mmol/L (3.3-5.1); Sodium 136 mmol/L (135-145); Total Protein 7.8 g/dL (6.5-8.0); Triglycerides 47 mg/dL (<150)
[2025-02-03 15:23] LABS: Folate 13.1 ng/mL (> or = 4.0); Vitamin B12 327 pg/mL (200-900)
== END 2025-02-03 08:50 | disposition home or self-care (01) ==
LOC: HO.LAB 08:49
PROVIDERS: PCP Internal Medicine; Visit Provider Internal Medicine
DX: Z00.00 Encounter for general adult medical examination without abnormal findings (principal); E55.9 Vitamin D deficiency, unspecified; E78.5 Hyperlipidemia, unspecified; E53.8 Deficiency of other specified B group vitamins
CPT/HCPCS: 36415; 80053; 80061; 82306; 82607; 82746; 96127; 99396

== ENCOUNTER 2025-02-03 08:49 | Outpatient (AMB) | payer OTHER, SELFPAY ==
[2025-02-03 08:57] VITALS: BP 110/68; PULSE 61; O2SAT 99; BMI 19.8
--- NOTE | 2025-02-03 08:57 | MHC.PC.OV ---
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 Accompanied by: Self / Same As Patient Allergies penicillin V Allergy (Unknown, Verified 02/03/25 09:08) not sure Medication List - Last Reconciled 02/03/25 by Sherry Benítez MD No Known Home Meds Tobacco use date assessed: 02/03/25 Dental Screening Dental Screen Date: 02/03/25 Did you have a dental visit in the last 12 months?: Yes Did you have a dental problem in the last 6 months where you did not have access to dental care?: No Was dental information given to patient?: Patient has dentist HPI HPI Comments History of Present Illness Details The patient is a 44-year-old female presenting for an annual physical examination. She has a known allergy to penicillin and takes no regular medications. A recent mammogram revealed a couple of masses and cysts, for which she has already consulted with a surgeon. Her most recent laboratory results were excellent, with normal findings for blood sugar, kidney, and liver function. She has a history of her vitamin D level consistently being slightly low. Pap smear done 2021 with HPV negative. Declines flu vaccine today. [facility] Medical History Mammographic extreme density, bilateral breasts Family history of diabetes mellitus Underweight Abdominal pain Surgical History No history of previous surgery Family History Father Liver cancer Cirrhosis Maternal Grandmother Diabetes mellitus Family/Other Breast cancer Mother Diabetes mellitus Social History Household Members: Children Household Members Other:: . 10 yr old daughter, 6 yr old son Housing: Apartment Alcohol intake: never Patient Tobacco Use Status: Never used Tobacco e-Cigarette/Vaping Use: Never Used Second Hand Smoke Exposure: No service: No Current occupational status: unemployed Gender identity: Female Cognitive needs: No Hearing needs: No Vision needs: No Female Reproductive History Menstrual Age of Menarche: 14 Questionnaire PHQ-9 Over the last 2 weeks, how often have you been bothered by any of the following problems? 1. Little interest or pleasure in doing things: not at all 2. Feeling down, depressed, or hopeless: not at all 3. Trouble falling or staying asleep, or sleeping too much: not at all 4. Feeling tired or having little energy: several days 5. Poor appetite or overeating: not at all 6. Feeling bad about yourself - or that you are a failure or have let yourself or your family down: not at all 7. Trouble concentrating on things, such as reading the newspaper or watching television: not at all 8. Moving or speaking so slowly that other people could have noticed. Or the opposite - being so fidgety or restless that you have been moving around a lot more than usual: not at all 9. Thoughts that you would be better off or of hurting yourself in some way: not at all Total score: 1 Depression Screening Interpretation: Negative Depression Screening Done: Yes 76404 - PHQ-9 Billing: Yes Source: Developed by Drs. Bony Rajput, Dana Morataya, Arturo Duggan and colleagues, with an educational ann from [employer]. Thrive Questionnaire Date Thrive assessed: 02/03/25 I am a: Patient What is your living situation today?: I have a steady place to live Within the past 12 months, did the food you bought not last and you didn't have the money to get more?: Sometimes True Within the past 12 months, did you worry whether your food would run out before you got money to buy more?: Often true Do you have trouble paying for medicines?: No Do you have trouble getting transportation to medical appointments?: No Do you have trouble paying your heating and electricity bill?: Yes Do you have trouble taking care of your child, family member or friend?: No Do you have trouble with day-to-day activities such as bathing, preparing meals, shopping, managing finances, etc.?: No Are you currently unemployed and looking for a job?: No Are you interested in more education?: No Please select the resources that you would like help with: None Currently or been in a relationship where the following occur: No concerns reported THRIVE Score: 3 AUDIT C Alcohol Use Questionnaire (AUDIT-C) 1. How often do you have a drink containing alcohol?: Never 3. How often do you have six or more drinks on one occasion?: Never Total Score: 0 Score Reviewed/Action Taken: No CUAUHTEMOC-7 AMB Questionnaire CUAUHTEMOC-7 Date CUAUHTEMOC - 7 assessed: 02/03/25 Feeling nervous, anxious, or on edge: 0 = Not at all Not being able to stop or control worryin = Not at all Worrying too much about different things: 0 = Not at all Trouble relaxin = Not at all Being so restless that it is hard to sit still: 0 = Not at all Becoming easily annoyed or irritable: 0 = Not at all Feeling afraid as if something awful might happen: 0 = Not at all Total CUAUHTEMOC-7 score (0-4 normal; 5-9 mild; 10-14 moderate; 15-21 severe): 0 Source: Developed by Drs. Bony Rajput, Dana Morataya, Arturo Duggan and colleagues, with an educational ann from [employer]. CUAUHTEMOC-7 Assessment Billing CUAUHTEMOC-7 Assessment Tool: CUAUHTEMOC-7 Assessment 13043 Review of Systems Const All systems reviewed & are unremarkable except as noted in HPI and below Eyes Reports no additional complaints, Denies change in vision and Denies other visual disturbances Card Denies chest pain at rest, Denies chest pain with activity, Denies edema, Denies irregular heart rhythm, Denies claudication, Denies dyspnea, Denies dyspnea on exertion, Denies orthopnea, Denies paroxysmal nocturnal dyspnea and Denies slow heart rate Resp Denies cough, Denies dyspnea and Denies dyspnea on exertion Musc Denies atrophy, Denies deformity and Denies limited range of motion Skin/Breast Denies bleeding lesions, Denies changing lesions and Denies rash Physical exam (Primary Care) Vital Signs: Last Vital Signs Pulse 61 02/03/25 08:57 BP 110/68 02/03/25 08:57 Pulse Ox 99 02/03/25 08:57 Oxygen Delivery Method Room Air 02/03/25 08:57 BMI result Body Mass Index 19.8 Tobacco/Smoking Status: Tobacco use Status Tobacco use date assessed 02/03/25 02/03/25 09:04 Patient Tobacco Use Status Never used Tobacco 02/03/25 09:04 e-Cigarette/Vaping Use Never Used 02/03/25 09:04 PHQ-9: PHQ-9 Score PHQ-9: Total score 1 02/03/25 09:04 Depression Screening Interpretation: Negative Thrive Assessment: Date of Thrive Assessment Date Thrive assessed 02/03/25 02/03/25 09:04 Currently or been in a relationship where the following occur: No concerns reported HENAL Head: Yes normal to inspection, Yes normocephalic and Yes atraumatic Ears: external ears normal Eyes General: appearance normal, both eyes and all related structures Eyelids: Yes eyelids normal Conjunctivae: conjunctivae normal Neck Neck: Yes normal visual inspection and Yes supple Resp Effort & Inspection: normal respiratory effort Auscultation: clear to auscultation bilaterally Cardio Jugular venous distension: no JVD Rate: regular rate Rhythm: regular rhythm Heart sounds: S1 normal heart sound present and S2 normal heart sound present GI Inspection: Yes normal to inspection Palpation (GI): Soft to palpation and nontender Auscultation: normal bowel sounds Skin General skin exam: no rashes or lesions noted Neuro General: no focal motor deficits Extrem General: Yes full ROM Psych Appearance: grossly normal Coding Level of Care Code Est Pt Prev Care 40-64y(93700) Diagnoses Physical exam Z00.00 Additional Codes PHQ-9 - 66043 - PHQ-9 Billing: Yes ([id number]) CUAUHTEMOC-7 Assessment Billing - CUAUHTEMOC-7 Assessment Tool: CUAUHTEMOC-7 Assessment 35895 ([id number]) Time Spent (min) 30 Assessment & Plan Assessment & Plan (1) Physical exam: Code(s): Z00.00 - Encounter for general adult medical examination without abnormal findings Category: Medical Plan Plan 1. Encounter for general adult medical examination without abnormal findings Z00.00 Repeat in a year. Continue yearly mammogram. Orders: Orders Vitamin D 25-OH Total Today E55.9 - Vitamin D deficiency, unspecified Lipid Panel Today E78.5 - Hyperlipidemia, unspecified Vitamin B12 and Folate Today E53.8 - Deficiency of other specified B group vitamins Comprehensive [place]. Panel Fast Today Z00.00 - Encounter for general adult medical examination without abnormal findings
== END 2025-02-03 09:57 | disposition home or self-care (01) ==
LOC: HO.HMCH 08:49
PROVIDERS: PCP Internal Medicine; Visit Provider Internal Medicine
DX: Z00.00 Encounter for general adult medical examination without abnormal findings (principal)